=== PATIENT | female | born 1970 | race Caucasian/White ===

== ENCOUNTER 2016-10-15 01:07 | Emergency (ER) | payer BC, SELFPAY ==
--- NOTE | ~2016-10-15 | ER ---
PATIENT'S NAME: ANALILIA SALAZAR [facility] AGE: 45 Y [address] ROOM: [place] [address] LOCATION: [facility] ADMIT DATE: 10/15/2016 ER/Outpatient Report DISCHARGE DATE: 10/15/2016 FAMILY PHYSICIAN: Bony Nur MD ATTENDING PHYSICIAN: Tamie Monsalve HISTORY OF PRESENT ILLNESS: This is a 45-year-old female, who presented today with a chief complaint of cough. She says it has been ongoing what started really like 2-1/2 weeks ago. She went to the doctor, got a Z-Forest and prednisone, and got better, but she has been driving around recently visiting family. She says the temperature changed a lot, so she thinks she might have caught another cold plus she was in a van, and her daughter smokes in the van the whole time. The patient does have a history of asthma as well, although she herself does not smoke. She denies fever or chills. She just says that she could not go to sleep today because of all the coughing. She denies any nausea or vomiting. No back pain. No other complaints at this time. PAST MEDICAL HISTORY: Fibromyalgia and asthma, for which she is on ProAir at this time. PAST SURGICAL HISTORY: 1. Appendectomy. 2. right wrist, right elbow. 3. Bladder sling. SOCIAL HISTORY: She does not smoke or use any drugs. She does report some alcohol use socially. MEDICATIONS: Please see medication list. ALLERGIES: TO AMOXICILLIN, RISPERDAL, AND LAMICTAL. REVIEW OF SYSTEMS: Reviewed by me with the exception of those discussed in the history of present illness. PHYSICAL EXAMINATION: VITAL SIGNS: The patient is 5 feet 4 inches. She weighs 78.4 kilos. Heart rate was 89, respiratory rate was 18, temperature was 98.4 tympanic, and saturating 96% on room air. PATIENT'S NAME: ANALILIA SALAZAR [facility] AGE: 45 Y [address] ROOM: [place] [address] LOCATION: [facility] ADMIT DATE: 10/15/2016 ER/Outpatient Report DISCHARGE DATE: 10/15/2016 FAMILY PHYSICIAN: Bony Nur MD ATTENDING PHYSICIAN: Tamie Monsalve GENERAL: The patient is coughing, but it is not a barky cough. She does not have any hemoptysis. She is able to speak to me in full sentences. Otherwise, she is not appearing short of breath. She looks uncomfortable, but is saturating 98% on room air at this time. CARDIAC: Heart rate is regular rate and rhythm. PULMONARY: Her lung sounds sound clear. She has no labored breathing, tachypnea, or accessory muscle use. There was no wheezing, rales, or rhonchi. She has no retractions. She has no accessory muscle use. She has no stridor. ABDOMEN: Soft, nontender, and nondistended. No guarding or rebound. EXTREMITIES: She has no pedal edema. She moves all extremities. SKIN: Intact. No rash. EMERGENCY ROOM COURSE: Given my physical examination, now she has no wheezing and she has normal sats. I do not think she needs a breathing treatment at this time nor do I think she needs antibiotics. It sounds like she just has a cold with a history of asthma. Would treat with some Tessalon Perles for her cough and some prednisone. I told her to continue to use albuterol inhaler. She should use two puffs q.4 hours scheduled, then follow up with her doctor. She understands reasons to come back to the Emergency Room sooner. IMPRESSION: Viral upper respiratory infection with cough. MD DAIJA KELLY/samira /[id number] d: 10/15/16611 t: 10/15/16 1823, OUTPATIENT REPORT
== END 2016-10-15 01:43 | disposition disaster alternative care site (69) ==
LOC: GMED 01:07
DX: J06.9 Acute upper respiratory infection, unspecified (principal); Z90.49 Acquired absence of other specified parts of digestive tract; Z88.1 Allergy status to other antibiotic agents; Z88.8 Allergy status to other drugs, medicaments and biological substances; Z79.899 Other long term (current) drug therapy

== ENCOUNTER 2016-12-31 19:05 | Emergency (ER) | payer OTHER ==
--- NOTE | ~2016-12-31 | ER ---
PATIENT'S NAME: ANALILIA SALAZAR [facility] AGE: 46 Y [address] ROOM: [place] [address] LOCATION: [facility] ADMIT DATE: 12/31/2016 ER/Outpatient Report DISCHARGE DATE: 12/31/2016 FAMILY PHYSICIAN: Bony Nur MD ATTENDING PHYSICIAN: Tamie Monsalve Time of Arrival: 1905 hours. Time of Evaluation: 1920 hours. CHIEF COMPLAINT: Migraine headache. HISTORY OF PRESENT ILLNESS: This is a 46-year-old female who presents to the ER with a migraine headache that started approximately 12 hours prior to arrival. The patient has a history of migraine headaches and states she has had no recent illness and this headache is similar to her previous headaches. She states the pain is across her forehead. It is causing her to have photophobia and nausea and neck discomfort. She states that she did take some of her pain medication at home with no relief of her headache. She denies any other problems at this time. ALLERGIES: PLEASE SEE LIST IN NURSE'S NOTES. MEDICATIONS: Please see medication list in nurse's notes. PAST MEDICAL HISTORY: Depression, anxiety, fibromyalgia, migraines. PAST SURGERIES: Carpal tunnel, tennis elbow, bladder sling. SOCIAL HISTORY: Drinks alcohol rarely. REVIEW OF SYSTEMS: All systems reviewed were negative with the exception of those discussed in the HPI. PHYSICAL EXAMINATION: VITAL SIGNS: Height 5 feet 4-1/4 inches, stated; weight 75.3 kilograms, taken; blood pressure is 134/90; pulse 92; respirations 16; temperature 99.5 degrees tympanically; saturations 96% on room air. Hinkle Coma Score is 15. PATIENT'S NAME: ANALILIA SALAZAR [facility] AGE: 46 Y [address] ROOM: [place] [address] LOCATION: [facility] ADMIT DATE: 12/31/2016 ER/Outpatient Report DISCHARGE DATE: 12/31/2016 FAMILY PHYSICIAN: Bony Nur MD ATTENDING PHYSICIAN: Tamie Monsalve GENERAL: Alert, calm, well-developed female, in mild distress. HEENT: Head, normocephalic. Eyes; pupils are equal and reactive to light. Ears; TMs display good light reflexes bilaterally. NECK: Supple. No lymphadenopathy, no nuchal rigidity. LUNGS: Clear to auscultation bilaterally. HEART: Regular rate and rhythm. EXTREMITIES: No clubbing or cyanosis. She does have full range of motion of all limbs. NEURO: Cranial nerves 2 through 12 grossly intact. Gait is steady without assistance. LABORATORY DATA AND X-RAYS: None were done. IMPRESSION: Migraine headache. ASSESSMENT AND PLAN: The patient states that she usually gets Toradol and Phenergan and that would help her. She states the IV cocktail does not usually help her. I did give her Toradol 60 mg IM and Phenergan 50 mg IM here in the ER and she did tolerate this well. We will dismiss her to home. She needs to continue to push fluids, monitor her symptoms, and follow up with her primary care physician if she does not improve. The patient understands and agrees with care. ASHTYN ALMENDAREZ PA-C FOR MD STANLEY KELLY/samira /[id number] d: t: 01/08/17 2233, OUTPATIENT REPORT
== END 2016-12-31 19:39 | disposition disaster alternative care site (69) ==
LOC: GMED 19:05
DX: G43.909 Migraine, unspecified, not intractable, without status migrainosus (principal); F32.9 Major depressive disorder, single episode, unspecified; F41.9 Anxiety disorder, unspecified; M79.1 Myalgia; Z98.890 Other specified postprocedural states; Z79.3 Long term (current) use of hormonal contraceptives; Z79.899 Other long term (current) drug therapy; Z88.8 Allergy status to other drugs, medicaments and biological substances
CPT/HCPCS: J1885; J2550

== ENCOUNTER 2017-01-28 21:21 | Emergency (ER) | payer SELFPAY ==
--- NOTE | ~2017-01-28 | ER ---
PATIENT'S NAME: [facility] Mehran [facility] AGE: 46 Y [address] ROOM: [place] [address] LOCATION: [facility] ADMIT DATE: 01/28/2017 ER/Outpatient Report DISCHARGE DATE: 01/28/2017 FAMILY PHYSICIAN: PHYSICIAN, NO ATTENDING PHYSICIAN: Panchito Paulson Time of Arrival: 2123 hours. Time of Exam: 2134 hours. CHIEF COMPLAINT: Sore throat. HISTORY OF PRESENT ILLNESS: The patient states she has a sore throat that began 01/24/2017, and has intensified over the last 2 days, worse today. She has also developed a frontal headache. ALLERGIES: RISPERIDONE AND LAMICTAL. CURRENT MEDICATIONS: On her chart; however, she states that she does not have money and has not been taking her medications for the past 2 months. PAST MEDICAL HISTORY: Fibromyalgia, migraines, hypothyroidism, and arthritis. PAST SURGICAL HISTORY: Carpal tunnel, tennis elbow, bladder sling, right oophorectomy, appendectomy, and right wrist. SOCIAL HISTORY: She denies tobacco use or drugs. Does drink alcohol on a monthly basis. REVIEW OF SYSTEMS: All negative other than those mentioned in the HPI. PHYSICAL EXAMINATION: VITAL SIGNS: She weighed 75.6 kg. Blood pressure was 145/89, pulse of 98, respirations 16, temperature of 98.4 tympanic, and O2 saturation was 99% on room air. GENERAL: She is awake, alert, and oriented x4. SKIN: Basile, warm, and dry. RESPIRATIONS: Even and nonlabored. HEENT: TMs are injected, non-red. Nasal is boggy and injected. Oropharynx is red posteriorly. No exudate is noted. PATIENT'S NAME: [facility] Mehran [facility] AGE: 46 Y [address] ROOM: [place] [address] LOCATION: [facility] ADMIT DATE: 01/28/2017 ER/Outpatient Report DISCHARGE DATE: 01/28/2017 FAMILY PHYSICIAN: PHYSICIAN, NO ATTENDING PHYSICIAN: Panchito Paulson NECK: Supple. Does have some positive anterior cervical nodes. DIAGNOSTIC DATA: Strep screen was completed, it is negative. IMPRESSION: Sinusitis. PLAN: Home. Rest. Fluids. Tylenol as needed for discomfort. Prescription was written for cephalexin. A note was written to excuse her from work tomorrow. She is to follow up with her primary provider if her symptoms persist or worsen. She verbalized understanding. ROBERTA ABDI APRN FOR MD YULISA [place]/samira /[id number] d: 01/29/171 t: 02/03/17 1633, OUTPATIENT REPORT
== END 2017-01-28 22:22 | disposition disaster alternative care site (69) ==
LOC: GMED 21:21
DX: J32.9 Chronic sinusitis, unspecified (principal); E03.9 Hypothyroidism, unspecified; G43.909 Migraine, unspecified, not intractable, without status migrainosus; M19.90 Unspecified osteoarthritis, unspecified site; Z90.721 Acquired absence of ovaries, unilateral; Z90.49 Acquired absence of other specified parts of digestive tract; Z98.890 Other specified postprocedural states; Z88.8 Allergy status to other drugs, medicaments and biological substances; Z59.8 Other problems related to housing and economic circumstances